=== PATIENT | male | born 1940 | race Caucasian/White ===

== ENCOUNTER 2025-07-17 10:05 | Day surgery (SDC) | payer MEDICARE, OTHER ==
[~2025-07-17 10:05] MED LIST: Propofol 200 MG/20 ML SDV ONE; Sodium Chloride 0.9% 10 ML Syringe FLUSH PRN
[2025-07-17] MEDS: Lactated Ringers 1,000 ML IV SCH (11:07)
== END 2025-07-17 13:45 | disposition home or self-care (01) ==
LOC: LL.SDS 10:05
PROVIDERS: ATTEND Surgery
DX: C18.7 Malignant neoplasm of sigmoid colon (principal); E78.5 Hyperlipidemia, unspecified; I10 Essential (primary) hypertension; K57.00 Diverticulitis of small intestine with perforation and abscess without bleeding; Z88.8 Allergy status to other drugs, medicaments and biological substances; Z79.899 Other long term (current) drug therapy
CPT/HCPCS: 45331; 45335; J2704; J7120